=== PATIENT | female | born 1995 | race Caucasian/White ===

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

== ENCOUNTER → 2017-02-14 | Outpatient (REF) | payer OTHER | LOC: M LAB REF 17:26 | PROVIDERS: ATTEND Physician Assistant Medical | DX: R30.0 Dysuria (principal) ==

== ENCOUNTER → 2017-05-26 | Outpatient (REF) | payer OTHER ==
[2017-05-26 22:19] LABS: CHLAMYDIA DNA AMPLIFICATION NEGATIVE (NEGATIVE); GC DNA AMPLIFICATION NEGATIVE (NEGATIVE)
== END ==
LOC: M SFHCLERA 18:11
DX: N89.8 Other specified noninflammatory disorders of vagina (principal)
CPT/HCPCS: 87086

== ENCOUNTER → 2017-07-12 | Outpatient (REF) | payer OTHER ==
[2017-07-12 18:00] LABS: BASO # 0.1 10^3/uL (0.0-0.2); BASO % 0.6 % (0.0-1.0); EOS # 0.3 10^3/uL (0.0-0.50); EOS % 2.9 % (0.0-3.0); HEMATOCRIT 41.4 % (36.0-47.0); HEMOGLOBIN 14.3 g/dl (12.0-15.5); IMMATURE GRANULOCYTE % 0.2 % (0-3.0); LYMPH # 2.2 10^3/uL (1.5-6.5); LYMPH % 23.9 % (24.0-44.0); MEAN CORPUSCULAR HEMOGLOBIN 30.6 pg (27.0-33.0); MEAN CORPUSCULAR HGB CONC 34.5 g/dl (32.0-36.5); MEAN CORPUSCULAR VOLUME 88.7 fl (80.0-96.0); MONO # 0.6 10^3/uL (0.0-0.8); MONO % 6.2 % (0.0-5.0); NEUTROPHILS # 6.1 10^3/uL (1.8-7.7); NEUTROPHILS % 66.2 % (36.0-66.0); PLATELET COUNT, AUTOMATED 282 10^3/uL (150-450); RED BLOOD COUNT 4.67 10^6/uL (4.00-5.40); RED CELL DISTRIBUTION WIDTH 11.9 % (11.5-14.5); WHITE BLOOD COUNT 9.3 10^3/uL (4.0-10.0)
[2017-07-12 18:56] LABS: RHEUMATOID FACTOR QUANT < 10.0 IU/ML (<15.0)
[2017-07-12 18:56] LABS: URIC ACID 4.4 MG/DL (2.6-6.0)
[2017-07-12 19:31] LABS: ERYTHROCYTE SEDIMENTATION RATE 7 mm/hr (0-20)
== END ==
LOC: M LABDRAW1 17:36
DX: M25.562 Pain in left knee (principal)

== ENCOUNTER → 2017-08-23 | Outpatient (REF) | payer OTHER ==
[2017-08-23 12:28] LABS: C REACTIVE PROTEIN QUANTITATIV < 0.30 MG/DL (0.00-0.30)
[2017-08-25 00:07] LABS: Lyme Disease IgG/IgM Antibodie <0.91 ISR (0.00-0.90); Lyme Disease IgM Ab Quantitati <0.80 index (0.00-0.79)
== END ==
LOC: M LABDRAW1 10:14
DX: M25.562 Pain in left knee (principal)
CPT/HCPCS: 86140

== ENCOUNTER → 2017-09-01 | Outpatient (CLI) | payer OTHER | LOC: M RAD 14:05 | DX: M25.562 Pain in left knee (principal) ==

== ENCOUNTER 2017-11-08 11:24 | Emergency (ER) | payer OTHER ==
[2017-11-08] MEDS: METHOCARBAMOL 500 MG TAB PO (13:16)
[2017-11-08] MEDS: NORCO, ANEXSIA 5/325MG TABLET (HYDROcodone/ACETAMINOPHEN) PO (13:17)
== END 2017-11-08 13:23 | disposition home or self-care (01) ==
LOC: M ED 11:24
DX: M54.42 Lumbago with sciatica, left side (principal); M54.16 Radiculopathy, lumbar region; J45.909 Unspecified asthma, uncomplicated; M41.9 Scoliosis, unspecified; Z79.3 Long term (current) use of hormonal contraceptives; Z79.899 Other long term (current) drug therapy; Z88.1 Allergy status to other antibiotic agents
CPT/HCPCS: 99283

== ENCOUNTER → 2018-01-24 | Outpatient (CLI) | payer OTHER ==
[2018-01-24 17:10] LABS: BASO % 0.6 % (0.0-1.0); EOS # 0.2 10^3/uL (0.0-0.50); EOS % 2.6 % (0.0-3.0); HEMOGLOBIN 14.4 g/dl (12.0-15.5); IMMATURE GRANULOCYTE % 0.1 % (0-3.0); LYMPH # 2.2 10^3/uL (1.5-6.5); LYMPH % 31.4 % (24.0-44.0); MEAN CORPUSCULAR HEMOGLOBIN 30.6 pg (27.0-33.0); MEAN CORPUSCULAR HGB CONC 34.3 g/dl (32.0-36.5); MEAN CORPUSCULAR VOLUME 89.4 fl (80.0-96.0); MONO # 0.6 10^3/uL (0.0-0.8); NEUTROPHILS % 57.3 % (36.0-66.0); PLATELET COUNT, AUTOMATED 292 10^3/uL (150-450); RED CELL DISTRIBUTION WIDTH 11.8 % (11.5-14.5); WHITE BLOOD COUNT 6.9 10^3/uL (4.0-10.0)
[2018-01-24 17:46] LABS: CONTROL LINE HCG INT CTR LINE PRESENT; HCG, SERUM QUALITATIVE NEGATIVE (NEGATIVE)
== END ==
LOC: M LAB 16:35
DX: R11.0 Nausea (principal)
CPT/HCPCS: 84703

== ENCOUNTER 2018-03-07 14:32 | Emergency (ER) | payer OTHER ==
[~2018-03-07] VITALS: Ht 157.5 cm; Wt 67.3 kg
[~2018-03-07 14:32] MED LIST changes: +IBUP80TA PO; +MELA3TAB49 PO; +NORCOTAB PO; +ORTH1TAB16 PO; -ORTHTAB14 PO; +ROBA500T PO
[2018-03-07] MEDS ORDERED: VENTAER INH (14:39)
[2018-03-07] MEDS ORDERED: PRED20TA PO (15:10)
[2018-03-07] MEDS ORDERED: ALLE60TA69 PO (15:10)
[2018-03-07] MEDS ORDERED: predniSONE 20 MG TAB PO ONE (15:15)
[2018-03-07 15:22] VITALS: BP 131/97
== END 2018-03-07 15:24 | disposition home or self-care (01) ==
LOC: M ED 14:32
DX: R21 Rash and other nonspecific skin eruption (principal); Z91.018 Allergy to other foods; Z88.1 Allergy status to other antibiotic agents; Z79.3 Long term (current) use of hormonal contraceptives

== ENCOUNTER → 2018-03-21 | Outpatient (CLI) | payer OTHER ==
[~2018-03-21] MED LIST changes: +ALLE60TA69 PO; +PRED20TA PO; +VENTAER INH
--- NOTE | 2018-03-21 21:42 | REP ---
Clinical: Contusion with pain. Technique: AP, inlet, and lateral views of the sacrum and coccyx. Findings: Sacroiliac joints appear symmetric and normal. The sacrum and coccyx appear relatively intact. Very subtle subluxation at the sacrococcygeal interface cannot be excluded. Surrounding soft tissues are unremarkable. Impression: As above. No acute fracture. Electronically Signed by Benedict Estevez MD 03/21/2018 09:34 P
== END ==
LOC: M SMT 11:15
PROVIDERS: ATTEND Physician Assistant
DX: S30.0XXA Contusion of lower back and pelvis, initial encounter (principal); Y93.89 Activity, other specified; Y92.89 Other specified places as the place of occurrence of the external cause; X58.XXXA Exposure to other specified factors, initial encounter; Y99.8 Other external cause status

== ENCOUNTER → 2018-05-07 | Outpatient (CLI) | payer OTHER ==
[2018-05-07 13:36] LABS: BASO % 0.4 % (0.0-1.0); EOS # 0.3 10^3/uL (0.0-0.50); HEMATOCRIT 41.4 % (36.0-47.0); HEMOGLOBIN 14.7 g/dl (12.0-15.5); LYMPH # 1.9 10^3/uL (1.5-6.5); LYMPH % 21.3 % (24.0-44.0); MEAN CORPUSCULAR HEMOGLOBIN 31.1 pg (27.0-33.0); MEAN CORPUSCULAR HGB CONC 35.5 g/dl (32.0-36.5); MEAN CORPUSCULAR VOLUME 87.7 fl (80.0-96.0); MONO # 0.7 10^3/uL (0.0-0.8); MONO % 7.2 % (0.0-5.0); NEUTROPHILS # 6.2 10^3/uL (1.8-7.7); NEUTROPHILS % 67.7 % (36.0-66.0); PLATELET COUNT, AUTOMATED 284 10^3/uL (150-450); RED BLOOD COUNT 4.72 10^6/uL (4.00-5.40); WHITE BLOOD COUNT 9.1 10^3/uL (4.0-10.0)
[2018-05-07 14:52] LABS: HEPATITIS C VIRUS ABY INDEX < 0.0 INDEX (<0.8); HIV 1&2 SCREEN CENTAUR NEGATIVE (NEGATIVE); RUBELLA IgG QUALITATIVE IMMUNE (IMMUNE)
[2018-05-07 15:32] LABS: CHLAMYDIA DNA AMPLIFICATION NEGATIVE (NEGATIVE); GC DNA AMPLIFICATION NEGATIVE (NEGATIVE)
== END ==
LOC: M SMT 11:58
PROVIDERS: ATTEND Advanced Practice Midwife
DX: Z36.89 Encounter for other specified antenatal screening (principal); Z3A.10 10 weeks gestation of pregnancy

== ENCOUNTER → 2018-05-10 | Outpatient (REF) | payer OTHER | LOC: M LAB REF 17:32 | PROVIDERS: ATTEND Physician Assistant | DX: N30.00 Acute cystitis without hematuria (principal) ==

== ENCOUNTER 2018-05-28 09:10 | Emergency (ER) | payer OTHER ==
[~2018-05-28] VITALS: Ht 157.5 cm; Wt 64.0 kg
[~2018-05-28 09:10] MED LIST changes: +HYDR-3715 PO; -NORCOTAB PO
[2018-05-28 09:56] LABS: BASO % 0.3 % (0.0-1.0); EOS # 0.2 10^3/uL (0.0-0.50); EOS % 3.2 % (0.0-3.0); HEMOGLOBIN 14.7 g/dl (12.0-15.5); LYMPH # 1.6 10^3/uL (1.5-6.5); LYMPH % 21.3 % (24.0-44.0); MEAN CORPUSCULAR HEMOGLOBIN 31.1 pg (27.0-33.0); MEAN CORPUSCULAR HGB CONC 35.9 g/dl (32.0-36.5); MEAN CORPUSCULAR VOLUME 86.9 fl (80.0-96.0); MONO # 0.5 10^3/uL (0.0-0.8); MONO % 6.4 % (0.0-5.0); NEUTROPHILS % 68.5 % (36.0-66.0); PLATELET COUNT, AUTOMATED 247 10^3/uL (150-450); RED BLOOD COUNT 4.72 10^6/uL (4.00-5.40); WHITE BLOOD COUNT 7.3 10^3/uL (4.0-10.0)
--- NOTE | 2018-05-28 10:43 | REP ---
OB ULTRASOUND: Real-time sonographic evaluation of the gravid uterus performed. There is a single living intrauterine gestation with an estimated gestational age 13 weeks 4 days based on today's ultrasound measurements with EDC 11/29/2018. CRL 73 mm = 13 weeks 3 days BPD 23 mm = 13 weeks 6 days HC 84 mm = 13 weeks 5 days AC 71 mm = 13 weeks 5 days FL 11 mm = 13 weeks 2 days HC/AC ratio 1.18 within normal range. heart rate 169 beats per minute. There is no subchorionic hemorrhage. Placenta is anterior and to the right with no previa or abruption. No maternal adnexal region abnormalities are seen. 1.8 cm cyst structure in the right ovary probably represents a corpus luteum. Electronically Signed by Curtis Steven MD 05/28/2018 12:46 P
[2018-05-28 11:45] LABS: CHLAMYDIA DNA AMPLIFICATION NEGATIVE (NEGATIVE); GC DNA AMPLIFICATION NEGATIVE (NEGATIVE)
[2018-05-28 12:31] VITALS: BP 116/73
[2018-05-28] MEDS ORDERED: METR-265 PO (12:32)
== END 2018-05-28 12:35 | disposition home or self-care (01) ==
LOC: M ED 09:10
DX: O23.591 Infection of other part of genital tract in pregnancy, first trimester (principal); O99.511 Diseases of the respiratory system complicating pregnancy, first trimester; Z3A.13 13 weeks gestation of pregnancy; Z79.899 Other long term (current) drug therapy; Z88.8 Allergy status to other drugs, medicaments and biological substances; Z88.1 Allergy status to other antibiotic agents

== ENCOUNTER 2018-05-31 07:06 | Emergency (ER) | payer OTHER ==
[~2018-05-31] VITALS: Ht 157.5 cm; Wt 64.1 kg
[~2018-05-31 07:06] MED LIST changes: +METR-265 PO
[2018-05-31] MEDS ORDERED: VENTAER (07:13)
[2018-05-31] MEDS ORDERED: PRENTAB55 (07:13)
[2018-05-31] MEDS ORDERED: ACETAMINOPHEN 325 MG TAB PO ONE (07:45)
[2018-05-31 08:21] LABS: BASO % 0.3 % (0.0-1.0); EOS # 0.2 10^3/uL (0.0-0.50); EOS % 3.3 % (0.0-3.0); HEMOGLOBIN 13.5 g/dl (12.0-15.5); LYMPH # 1.6 10^3/uL (1.5-6.5); MEAN CORPUSCULAR HEMOGLOBIN 31.1 pg (27.0-33.0); MEAN CORPUSCULAR HGB CONC 35.5 g/dl (32.0-36.5); MEAN CORPUSCULAR VOLUME 87.6 fl (80.0-96.0); MONO # 0.5 10^3/uL (0.0-0.8); MONO % 8.5 % (0.0-5.0); NEUTROPHILS % 62.6 % (36.0-66.0); PLATELET COUNT, AUTOMATED 215 10^3/uL (150-450); RED BLOOD COUNT 4.34 10^6/uL (4.00-5.40); WHITE BLOOD COUNT 6.3 10^3/uL (4.0-10.0)
[2018-05-31 09:17] LABS: ALBUMIN 3.4 GM/DL (3.2-5.2); ALT/SGPT 14 U/L (12-78); BILIRUBIN,DIRECT < 0.1 MG/DL (0.0-0.2); BILIRUBIN,TOTAL 0.2 MG/DL (0.2-1.0); BLOOD UREA NITROGEN 7 MG/DL (7-18); CALCIUM LEVEL 8.3 MG/DL (8.5-10.1); CARBON DIOXIDE LEVEL 24 MEQ/L (21-32); CHLORIDE LEVEL 109 MEQ/L (98-107); CREATININE FOR GFR 0.64 MG/DL (0.55-1.30); GLOMERULAR FILTRATION RATE > 60.0 (>60); GLUCOSE, FASTING 79 MG/DL (70-100); HCG, SERUM QUANTITATIVE 102140 MIU/ML; LIPASE 165 U/L (73-393); SODIUM LEVEL 139 MEQ/L (136-145); TOTAL PROTEIN 6.6 GM/DL (6.4-8.2)
[2018-05-31 09:34] LABS: APPEARANCE, URINE HAZY (CLEAR); BACTERIA, URINE AUTO 1+ (NEGATIVE); BILIRUBIN, URINE AUTO NEGATIVE (NEGATIVE); BLOOD, URINE BLOOD NEGATIVE (NEGATIVE); COLOR, URINE YELLOW (YELLOW); GLUCOSE, URINE (UA) AUTO NEGATIVE (NEGATIVE); KETONE, URINE AUTO NEGATIVE (NEGATIVE); LEUKOCYTE ESTERASE, URINE AUTO 1+ (NEGATIVE); MUCUS, URINE SMALL (NEGATIVE); NITRITE, URINE AUTO NEGATIVE (NEGATIVE); PROTEIN, URINE AUTO NEGATIVE (NEGATIVE); RBC, URINE AUTO 2 /HPF (0-3); SPECIFIC GRAVITY URINE AUTO 1.027 (1.002-1.035); SQUAMOUS EPITHELIAL CELL UR AU 6 /HPF (0-6); UROBILINOGEN, URINE AUTO 0.2 mg/dL (0.0-2.0); WBC, URINE AUTO 2 /HPF (0-3)
--- NOTE | 2018-05-31 09:39 | REP ---
PELVIC ULTRASOUND: Real-time sonographic evaluation of the pelvis performed utilizing transabdominal and endovaginal technique with special attention paid to the ovaries to rule out ovarian torsion. No free fluid is seen. There is a living intrauterine gestation as visualized on recent first trimester ultrasound 05/28/2018 with heart rate 157 beats per minute. Right ovary measures 4.0 x 3.3 x 4.6 cm. There is a right corpus luteum measuring 2.8 x 1.5 x 2.5 cm. Left ovary measures 2.7 x 1.9 x 2.8 cm. There is no torsion bilaterally, resistive index right ovary 0.52 and left ovary 0.54 with duplex Doppler evaluation. IMPRESSION: Living intrauterine gestation with heart rate 167 beats per minute. No evidence of ovarian torsion. Right corpus luteum 2.8 cm in diameter. Electronically Signed by Curtis Steven MD 05/31/2018 03:11 P
[2018-05-31 09:45] VITALS: BP 118/66
== END 2018-05-31 10:01 | disposition home or self-care (01) ==
LOC: M ED 07:43
DX: O99.89 Other specified diseases and conditions complicating pregnancy, childbirth and the puerperium (principal); N76.0 Acute vaginitis; N83.291 Other ovarian cyst, right side; Z3A.13 13 weeks gestation of pregnancy; Z88.1 Allergy status to other antibiotic agents; Z88.2 Allergy status to sulfonamides; Z88.8 Allergy status to other drugs, medicaments and biological substances

== ENCOUNTER 2018-06-17 15:40 | Emergency (ER) | payer OTHER ==
[~2018-06-17] VITALS: Ht 157.5 cm; Wt 63.6 kg
[~2018-06-17 15:40] MED LIST changes: +ORTH1TAB15 PO; -ORTH1TAB16 PO; +PRENTAB55; +VENTAER
[2018-06-17 16:10] LABS: BASO % 0.2 % (0.0-1.0); EOS # 0.2 10^3/uL (0.0-0.50); EOS % 2.7 % (0.0-3.0); HEMATOCRIT 39.6 % (36.0-47.0); HEMOGLOBIN 14.1 g/dl (12.0-15.5); LYMPH # 1.6 10^3/uL (1.5-6.5); LYMPH % 18.1 % (24.0-44.0); MEAN CORPUSCULAR HEMOGLOBIN 30.9 pg (27.0-33.0); MEAN CORPUSCULAR HGB CONC 35.6 g/dl (32.0-36.5); MEAN CORPUSCULAR VOLUME 86.7 fl (80.0-96.0); MONO # 0.6 10^3/uL (0.0-0.8); MONO % 7.1 % (0.0-5.0); NEUTROPHILS # 6.3 10^3/uL (1.8-7.7); NEUTROPHILS % 71.6 % (36.0-66.0); PLATELET COUNT, AUTOMATED 232 10^3/uL (150-450); RED BLOOD COUNT 4.57 10^6/uL (4.00-5.40); WHITE BLOOD COUNT 8.8 10^3/uL (4.0-10.0)
[2018-06-17 16:57] LABS: BLOOD UREA NITROGEN 6 MG/DL (7-18); CALCIUM LEVEL 8.5 MG/DL (8.5-10.1); CARBON DIOXIDE LEVEL 24 MEQ/L (21-32); CHLORIDE LEVEL 107 MEQ/L (98-107); CREATININE FOR GFR 0.62 MG/DL (0.55-1.30); GLOMERULAR FILTRATION RATE > 60.0 (>60); GLUCOSE, FASTING 101 MG/DL (70-100); HCG, SERUM QUANTITATIVE 70550 MIU/ML; POTASSIUM SERUM 3.5 MEQ/L (3.5-5.1); SODIUM LEVEL 140 MEQ/L (136-145)
--- NOTE | 2018-06-17 17:41 | REPVR ---
EXAM: US First Trimester, Transabdominal EXAM DATE/TIME: 06/17/2018 4:53 PM CLINICAL HISTORY: 23 years old, female; Signs and symptoms; Lmp or gestational age (in weeks): 16 weeks 1 day; Other: Vaginal bleeding; ; Additional info: Vaginal bleeding; 16 weeks gestation TECHNIQUE: Imaging protocol: Real-time transabdominal obstetrical ultrasound of the maternal pelvis and a first trimester , less than 14 weeks 0 days, with image documentation. COMPARISON: Pelvis, limited US 05/31/2018 8:30 AM FINDINGS: Other findings: 6 GESTATION: Gestation: Single intrauterine gestation Heart rate: heart rate 149 beats per minute. Presentation: Variable Placenta: Posterior placenta. No placenta previa. Amniotic fluid: Amniotic and chorionic fluid are normal for gestational age. BIOMETRY: Estimated gestational age: Gestational age by LMP is 16 weeks 2 days. EZEKIEL 11/30/2018. Estimated weight: Estimated weight 149 g (41 percentile) Biparietal diameter: Since BPD 3.3 cm Head circumference: Head circumference 12.7 cm Abdominal circumference: Abdominal circumference 10.7 cm Femur length: Femur length 2 cm. MATERNAL: Uterus: Unremarkable. Cervix: Cervix measures 2.9 cm. Right adnexa: Unremarkable. Left adnexa: Unremarkable. Intraperitoneal: No intraperitoneal free fluid. IMPRESSION: Unremarkable scan and this 16 week 2 day gestational age fetus. Electronically signed by: Juan Carlos Beck On 06/17/2018 17:41:32 PM
[2018-06-17 17:43] VITALS: BP 133/67
== END 2018-06-17 18:00 | disposition home or self-care (01) ==
LOC: M ED 15:40
DX: O20.8 Other hemorrhage in early pregnancy (principal); O99.512 Diseases of the respiratory system complicating pregnancy, second trimester; O99.89 Other specified diseases and conditions complicating pregnancy, childbirth and the puerperium; M41.9 Scoliosis, unspecified; Z87.891 Personal history of nicotine dependence; Z3A.16 16 weeks gestation of pregnancy; Z79.899 Other long term (current) drug therapy; Z88.8 Allergy status to other drugs, medicaments and biological substances; Z88.2 Allergy status to sulfonamides

== ENCOUNTER 2019-08-30 09:52 | Emergency (ER) | payer OTHER ==
[~2019-08-30] VITALS: Ht 157.5 cm; Wt 62.3 kg
[~2019-08-30 09:52] MED LIST changes: -ORTH1TAB15 PO; +ORTH1TAB8 PO
[2019-08-30] MEDS ORDERED: ALBUTEROL 90 MCG/ACT 8GM HFA INHALER INH STA (10:18)
[2019-08-30] MEDS ORDERED: predniSONE 20 MG TAB PO ONE (10:30)
--- NOTE | 2019-08-30 10:32 | ECGEPIP ---
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
--- NOTE | 2019-08-30 10:37 | REP ---
Clinical: Cough and dyspnea . Comparison: None . Findings: The mediastinum and cardiac silhouette are stable and within normal limits for portable technique. The lung andrews are clear without acute consolidation, effusion, or pneumothorax. Skeletal structures are intact. White rods through the thoracic spine noted. Impression: No acute cardiopulmonary process appreciated. Electronically Signed by Benedict Estevez MD 08/30/2019 10:29 A
[2019-08-30] MEDS ORDERED: PRED20TA PO (12:04)
[2019-08-30 12:15] VITALS: O2SAT 98
[2019-08-30 12:36] VITALS: BP 123/71
== END 2019-08-30 12:48 | disposition home or self-care (01) ==
LOC: EDBD 09:52 → M ED 09:52
DX: J45.901 Unspecified asthma with (acute) exacerbation (principal); Z79.899 Other long term (current) drug therapy; Z88.1 Allergy status to other antibiotic agents; Z88.8 Allergy status to other drugs, medicaments and biological substances

== ENCOUNTER → 2019-11-29 | Outpatient (REF) | payer OTHER | LOC: M LAB REF 15:06 | PROVIDERS: ATTEND Physician Assistant | DX: F52.6 Dyspareunia not due to a substance or known physiological condition (principal) ==

== ENCOUNTER → 2020-03-16 | Outpatient (REF) | payer OTHER | LOC: M LAB REF 18:11 | PROVIDERS: ATTEND Physician Assistant | DX: J06.9 Acute upper respiratory infection, unspecified (principal) ==

== ENCOUNTER 2020-04-23 10:19 | Emergency (ER) | payer OTHER ==
[~2020-04-23] VITALS: Ht 157.5 cm; Wt 69.1 kg
[2020-04-23] MEDS ORDERED: TRI-TAB (10:33)
--- OUTSIDE RECORDS SUMMARY | 2020-04-23 10:46 | CCD | Continuity of Care Document ---
Author Author Reena JONES Organization Unknown Address [address] [place] [address] 6 [address] [place] [address] Phone [phone] Care Team Providers Care Tarp Repairer Name Role Phone Sandy Borrego D.O. AUTM [phone] Melecio Khoury M.D. AUTM [phone] [facility] AUTM [phone] Problems Active Problems Provider Date Asthma REZA Vilchis Onset: 03/15/2016 Social History Type Date Description Comments Sex Unknown ETOH Use Denies alcohol use Tobacco Use Start: Unknown Patient has never smoked Recreational Drug Use Denies Drug Use Smoking Status Reviewed: 04/04/19 Patient has never smoked Sun Exposure Uses sunscreen Seat Belt/Car Seat Always uses seat belt Allergies, Adverse Reactions, Alerts Active Allergies Reaction Severity Comments Date Biaxin 10/28/2015 Bactrim 10/28/2015 Amoxicillin Urticaria 01/04/2017 Medications Active Medications SIG Qnty Indications Ordering Provide r Date Trinessa (28) 0.18/0 .215/0.25 mg-35 mcg Tablets take 1 tablet by mouth daily 84tabs Sandy Braga D.O. 02/07/2019 Ventolin HFA 108(90Base) mcg/Act A erosol 2 puffs every 4 hours shortness of breath or wheezing 36gm J45.909 Sandy Romero D.O. 02/23/2016 History Medications Zyrtec-D Allergy & Congestion 5-120mg Tablets ER 12HR 1 tablet by mouth every 12 hours . take for no more then 10 days max. 20tabs J30.9 José Miguel ChrisO. 10/03 - 11/29/2019 Flonase Allergy Relief 50mcg/Act Suspension two sprays in each nostril once daily 18.200ml J30.9 José Miguel ChrisO. 10/04/2019 - 11/29/2019 Medications Administered in Office Medication SIG Qnty Indications Ordering Provider Date Immunization Administration Single Or Co mbination Injection REZA Vilchis Immunizations CPT Code Status Date Vaccine Lot # [id number] Given 02/23/2016 Influenza Virus Vaccine, Quadrivalent, Split, Preservative Free [id number] Vital Signs Date Vital Result Comment 2020 4:18pm BP Systolic 140 mmHg BP Diastolic 80 mmHg Height 63.1 inches 5'3.10" Weight 151.00 lb BMI (Body Mass Index) 26.7 kg/m2 Heart Rate 81 /min Respiratory Rate 22 /min Body Temperature 98.8 F O2 % BldC Oximetry 99 % [place] Body Weight 115 lb 01/09/2020 1:48pm BP Systolic 116 mmHg BP Diastolic 80 mmHg Height 63.1 inches 5'3.10" Weight 148.25 lb BMI (Body Mass Index) 26.2 kg/m2 Heart Rate 88 /min Respiratory Rate 20 /min Body Temperature 97.9 F O2 % BldC Oximetry 98 % [place] Body Weight 115 lb Results Test Acquired Date Facility Test Result H/L Range Note Respiratory Panel 2020 [facility] (Registration) [address] [place] [address] [phone] Respiratory Panel This respiratory <SEE NOTE> 1 Laboratory test finding 11/29/2019 [facility] (Registration) [address] [place] [address] [id number] [phone] Genital Culture FULL REPORT IN L <SEE NOTE> Normal 2 1 This respiratory PCR panel d etects Influenza A H1, H3 and 2009 H1 viruses, Influenza B virus, Resp iratory Syncytial Virus, Human metapneumovirus, Parainfluenza virus 1, 2, 3 and 4, Adenovirus, Rhinovirus/Enterovirus, Coronavirus HKU1, NL63, OC43, 229E and SARS-CoV-2 (COVID 19), Bordetella pertussis, Bordetella parapertussis, Mycoplasma pneumoniae and Chlamydia pneumoniae. POSITIVE by MULTIPLEXED NUCLEIC ACID PCR SARS-CoV-2 (COVID 19) NEGATIVE - SARS-CoV-2 (COVID19) ORGANISM 1: HUMAN RHINOVIRUS/ENTEROVIRUS Rhinovirus is noted as causing the "common cold", but may also be involved in precipitating asthma attacks and severe complications. Enteroviruses can be associated with different clinical manifestations, including non-specific respiratory illness. These viruses are closely related and therefore not able to be reliably differentiated. ORGANISM 1: HUMAN RHINOVIRUS/ENTEROVIRUS 2 FULL REPORT IN LAB NOTES (eC W and Medent). 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, left arm, subs F41.9 Anxiety disorder, unspecifie d Office Visit 11/29/2019 1:00p [facility] REZA Vilchis F52.6 Dyspareunia not due to a sub stance or known physiol cond Office Visit 10/04/2019 1:40p [facility] REZA Gaona J30.9 Allergic rhinitis, unspecifi ed Assessments Date Code Description Provider 2020 J06.9 Acute upper respiratory infectio n, unspecified REZA Vilchis 01/09/2020 S44.02xD Injury of ulnar nerv e at upper arm level, left arm, subsequent encounter REZA Vilchis 01/09/2020 F41.9 Anxiety disorder, unspecified St even REZA Green 11/29/2019 F52.6 Dyspareunia not due to a substance or known physiological condition REZA Vilchis 10/04/2019 J30.9 Allergic rhinitis, unspecified M REZA Leos Plan of Treatment Future Appointment(s):* 04/07/2020 10:00 am - Sandy Borrego D.O. at [facility] 2020 - REZA Vilchis* J06.9 Acute upper respiratory infection, unspecified* Comments:* Given your symptoms and exposure, we will test you for COVID-19 and other viral pathogens. In the meantime, treat symptoms as we discussed, and I will notify you of test results and further treatment plans. Use tylenol and ibuprofen as needed for fever, and go to the ED for symptoms not relieved with medications and rest. * Follow up:* As already scheduled. Functional Status Description No Information Available Mental Status Description No Information Available Referrals Refer to Reason for Referral Status Appt Date [facility] 24 year old with wors ening anxiety given earlier life circumstances. Please eval and treat for counseling. [facility] [address] [facility] [address] [place] [address] [phone] Melecio Khoury M.D. 24 year old with left elbow pain, with radiation of numbness and tingling to the left hand. Please eval and treat. Closed [facility] [address] [place] [address] [phone]
--- OUTSIDE RECORDS SUMMARY | 2020-04-23 10:46 | CCD ---
Continuity of Care Document (CCD) Created on: 03/17/2020 Reena Gomez External Reference #: [id number] : 1995 Sex: Female Author Author Reena JONES Organization Unknown Address [address] [place] [address] 6 [address] [place] [address] Phone [phone] Care Team Providers Care Audience Development Manager Name Role Phone Sandy Borrego D.O. AUTM [phone] Melecio Khoury M.D. AUTM [phone] [facility] Problems Active Problems Provider Date Asthma REZA [...] CPT Code Status Date Vaccine Lot # [id number] Given 02/23/2016 Influenza Virus Vaccine, Quadrivalent, Split, Preservative Free [id number] Vital Signs Date Vital Result Comment 2020 4:18pm BP Systolic 140 mmHg BP Diastolic 80 mmHg Height 63.1 inches 5'3.10" Weight 151.00 lb BMI (Body Mass Index) 26.7 kg/m2 Heart Rate 81 /min Respiratory Rate 22 /min Body Temperature 98.8 F O2 % BldC Oximetry 99 % [place] Body Weight 115 lb 01/09/2020 1:48pm BP Systolic 116 mmHg BP Diastolic 80 mmHg Height 63.1 inches 5'3.10" Weight 148.25 lb BMI (Body Mass Index) 26.2 kg/m2 Heart Rate 88 /min Respiratory Rate 20 /min Body Temperature 97.9 F O2 % BldC Oximetry 98 % Claude Body Weight 115 lb Results Test Acquired Date Facility Test Result H/L Range Note Respiratory Panel 2020 [facility] Outpatient Testi ng (Registration) [address] [place] [address] [phone] Respiratory Panel This respiratory <SEE NOTE> 1 Laboratory test finding 11/29/2019 [facility] Outpatient T esting (Registration) [address] [place] [address] [id number] [phone] Genital Culture FULL REPORT IN L <SEE [...] Date Location Provider Dx Diagnosis Office Visit 01/09/2020 1:40p [facility] REZA Vilchis 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 at [facility] 2020 - REZA Vilchis* J06.9 Acute upper [...] to Reason for Referral Status Appt Date Melecio Khoury M.D. 24 year old with left elbow pain, with radiation of numbness and tingling to the left hand. Please eval and treat. Sent [facility] [address] [place] [address] [phone] [facility] 24 year old with wors ening anxiety given earlier life circumstances. Please eval and treat for counseling. [facility] [address] [place] [address] [phone]
--- OUTSIDE RECORDS SUMMARY | 2020-04-23 10:46 | CCD | Continuity of Care Document ---
Author Author Reena JONES Organization Unknown Address [address] [place] [address] 6 [address] [place] [address] Phone [phone] Care Team Providers Care Inventory Control Planner Name Role Phone Sandy Borrego D.O. AUTM Melecio Khoury M.D. AUTM [phone] [facility] AUTM Problems Active [...] more then 10 days max. 20tabs J30.9 Terri Chris.O. 10/03 - 11/29/2019 Flonase Allergy Relief 50mcg/Act Suspension two sprays in each nostril once daily 18.200ml J30.9 Terri Chris.O. 10/04/2019 - 11/29/2019 Medications Administered in Office Medication SIG Qnty Indications Ordering Provider Date Immunization Administration Single Or Co mbination Injection REZA Vilchis Immunizations CPT Code Status Date Vaccine Lot # [id number] Given 02/23/2016 Influenza Virus Vaccine, Quadrivalent, Split, Preservative Free [id number] Vital Signs Date Vital Result Comment 2020 4:18pm BP Systolic 140 mmHg BP Diastolic 80 mmHg Height 63.1 inches 5'3.10" Weight 151.00 lb BMI (Body Mass Index) 26.7 kg/m2 Heart Rate 81 /min Respiratory Rate 22 /min Body Temperature 98.8 F O2 % BldC Oximetry 99 % [place] Body Weight 115 lb 01/09/2020 1:48pm BP Systolic 116 mmHg BP Diastolic 80 mmHg Height 63.1 inches 5'3.10" Weight 148.25 lb BMI (Body Mass Index) 26.2 kg/m2 Heart Rate 88 /min Respiratory Rate 20 /min Body Temperature 97.9 F O2 % BldC Oximetry 98 % [place] Body Weight 115 lb Results Test Acquired Date Facility Test Result H/L Range Note Laboratory test finding 11/29/2019 [facility] (Registration) [address] [place] [address] [id number] [phone] Genital Culture FULL REPORT IN L <SEE NOTE> Normal 1 1 FULL REPORT IN LAB NOTES (eC W and Medent). 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, left arm, subs F41.9 Anxiety disorder, unspecifie d Office Visit 11/29/2019 1:00p [facility] REZA Holder F52.6 Dyspareunia not due to a sub stance or known physiol cond Office Visit 10/04/2019 1:40p [facility] REZA Gaona J30.9 Allergic rhinitis, unspecifi ed Assessments Date Code Description Provider 2020 J06.9 Acute upper respiratory infectio n, unspecified REZA Vilchis 01/09/2020 S44.02xD Injury of ulnar nerv e at upper arm level, left arm, subsequent encounter REZA Vilchis 01/09/2020 F41.9 Anxiety disorder, unspecified REZA Neal 11/29/2019 F52.6 Dyspareunia not due to a substance or known physiological condition REZA Vilchis 10/04/2019 J30.9 Allergic rhinitis, unspecified M REZA Leos Plan of Treatment Future Appointment(s):* 04/07/2020 10:00 am - Sandy Borrego D.O. at [facility] 2020 - REZA Vilchis* J06.9 Acute upper respiratory infection, unspecified* New Labs:* Respiratory Panel, Ordered: 03/16/20 * Comments:* Given your symptoms and exposure, we [...] left hand. Please eval and treat. Sent [facility] [address] [place], [place] [id number] [phone] [facility] 24 year old with wors ening anxiety given earlier life circumstances. Please eval and treat for counseling. [facility] [address] [place] [address] [phone]
--- OUTSIDE RECORDS SUMMARY | 2020-04-23 10:46 | CCD ---
Author Author [facility] Organization [facility] Address Unknown Phone Unavailable Care Team Providers Care Customs Brokerage Agent Name Role Phone Cheryle, Melecio PA Unavailable Unavailable Cheryle, Melecio PA Unavailable Unavailable Cheryle, Melecio PA Unavailable Unavailable Cheryle, Melecio PA Unavailable Unavailable Cheryle, Melecio PA Unavailable Unavailable Cheryle, Melecio PA Unavailable Unavailable Cheryle, Emlecio PA Unavailable Unavailable Cheryle, Melecio PA Unavailable Unavailable Cheryle, Melecio PA Unavailable Unavailable Cheryle, Melecio PA Unavailable Unavailable Cheryle, Melecio PA Unavailable Unavailable Cheryle, Melecio PA Unavailable Unavailable Cheryle, Melecio PA Unavailable Unavailable Cheryle, Melecio PA Unavailable Unavailable Cheryle, Melecio PA Unavailable Unavailable Cheryle, Melecio PA Unavailable Unavailable Cheryle, Melecio PA Unavailable Unavailable Cheryle, Melecio PA Unavailable Unavailable Cheryle, Melecio PA Unavailable Unavailable Cheryle, Melecio PA Unavailable Unavailable Cheryle, Melecio PA Unavailable Unavailable Cheryle, Melecio PA Unavailable Unavailable Cheryle, Melecio PA Unavailable Unavailable Cheryle, Melecio PA Unavailable Unavailable Cheryle, Melecio PA Unavailable Unavailable Cheryle, Melecio PA Unavailable Unavailable Cheryle, Melecio PA Unavailable Unavailable Cheryle, Melecio PA Unavailable Unavailable Cheryle, Melecio PA Unavailable Unavailable Cheryle, Melecio PA Unavailable Unavailable Cheryle, Melecio PA Unavailable Unavailable Cheryle, Melecio PA Unavailable Unavailable Cheryle, Melecio PA Unavailable Unavailable Cheryle, Melecio PA Unavailable Unavailable Cheryle, Melecio PA Unavailable Unavailable Cheryle, Melecio PA Unavailable Unavailable Cheryle, Melecio PA Unavailable Unavailable Cheryle, Melecio PA Unavailable Unavailable Cheryle, Melecoi PA Unavailable Unavailable Cheryle, Melecio PA Unavailable Unavailable Cheryle, Melecio PA Unavailable Unavailable Cheryle, Melecio PA Unavailable Unavailable Cheryle, Melecio PA Unavailable Unavailable Cheryle, Melecio PA Unavailable Unavailable Cheryle, Melecio PA Unavailable Unavailable Cheryle, Melecio PA Unavailable Unavailable Cheryle, Melecio PA Unavailable Unavailable Cheryle, Melecio PA Unavailable Unavailable Cheryle, Melecio PA Unavailable Unavailable MARC-KARI, RHONDA DO Unavailable Unavailable MARC-KARI, RHONDA DO Unavailable Unavailable MARC-KARI, RHONDA DO Unavailable Unavailable MARC-KARI, RHONDA DO Unavailable Unavailable MARC-KARI, RHONDA DO Unavailable Unavailable MARC-KARI, RHONDA DO Unavailable Unavailable MARC-KARI, RHONDA DO Unavailable Unavailable MARC-KARI, RHONDA DO Unavailable Unavailable MARC-KARI, RHONDA DO Unavailable Unavailable MARC-KARI, RHONDA DO Unavailable Unavailable MARC-KARI, RHONDA DO Unavailable Unavailable MARC-KARI, RHONDA DO Unavailable Unavailable MARC-KARI, RHONDA DO Unavailable Unavailable MARC-KARI, RHONDA DO Unavailable Unavailable MARC-KARI, RHONDA DO Unavailable Unavailable MARC-KARI, RHONDA DO Unavailable Unavailable MARC-KARI, RHONDA DO Unavailable Unavailable MARC-KARI, RHONDA DO Unavailable Unavailable MARC-KARI, RHONDA DO Unavailable Unavailable MARC-KARI, RHONDA DO Unavailable Unavailable MARC-KARI, RHONDA DO Unavailable Unavailable MARC-KARI, RHONDA DO Unavailable Unavailable MARC-KARI, RHONDA DO Unavailable Unavailable MARC-KARI, RHONDA DO Unavailable Unavailable MARC-KARI, RHONDA DO Unavailable Unavailable MARC-KARI, RHONDA DO Unavailable Unavailable MARC-KARI, RHONDA DO Unavailable Unavailable MARC-KARI, RHONDA DO Unavailable Unavailable MARC-KARI, RHONAD DO Unavailable Unavailable MARC-KARI, RHONDA DO Unavailable Unavailable MARC-KARI, RHONDA DO Unavailable Unavailable MARC-KARI, RHONDA DO Unavailable Unavailable MARC-KARI, RHONDA DO Unavailable Unavailable MARC-KARI, RHONDA DO Unavailable Unavailable MARC-KARI, RHONDA DO Unavailable Unavailable MARC-KARI, RHONDA DO Unavailable Unavailable MARC-KARI, RHONDA DO Unavailable Unavailable MARC-KARI, RHONDA DO Unavailable Unavailable MARC-KARI, RHONDA DO Unavailable Unavailable MARC-KARI, RHONDA DO Unavailable Unavailable MARC-KARI, RHONDA DO Unavailable Unavailable MARC-KARI, RHONDA DO Unavailable Unavailable MARC-KARI, RHONDA DO Unavailable Unavailable MARC-KARI, RHONDA DO Unavailable Unavailable MARC-KARI, RHONDA DO Unavailable Unavailable MARC-KARI, RHONDA DO Unavailable Unavailable MARC-KARI, RHONDA DO Unavailable Unavailable MARC-KARI, RHONDA DO Unavailable Unavailable MARC-KARI, RHONDA DO Unavailable Unavailable MARC-KARI, RHONDA DO Unavailable Unavailable MARC-KARI, RHONDA DO Unavailable Unavailable MARC-KARI, RHONDA DO Unavailable Unavailable MARC-KARI, RHONDA DO Unavailable Unavailable MARC-KARI, RHONDA DO Unavailable Unavailable MARC-KARI, RHONDA DO Unavailable Unavailable MARC-KARI, RHONDA DO Unavailable Unavailable MARC-KARI, RHONDA DO Unavailable Unavailable MARC-KARI, RHONDA DO Unavailable Unavailable MARC-KARI, RHONDA DO Unavailable Unavailable MARC-KARI, RHONDA DO Unavailable Unavailable MARC-KARI, RHONDA DO Unavailable Unavailable MARC-KARI, RHONDA DO Unavailable Unavailable MARC-KARI, RHONDA DO Unavailable Unavailable MARC-KARI, RHONDA DO Unavailable Unavailable MARC-KARI, RHONDA DO Unavailable Unavailable MARC-KARI, RHONDA DO Unavailable Unavailable MARC-KARI, RHONDA DO Unavailable Unavailable MARC-KARI, RHONDA DO Unavailable Unavailable MARC-KARI, RHONDA DO Unavailable Unavailable MARC-KARI, RHONDA DO Unavailable Unavailable MARC-KARI, RHONDA DO Unavailable Unavailable MARC-KARI, RHONDA DO Unavailable Unavailable MARC-KARI, RHONDA DO Unavailable Unavailable MARC-KARI, RHONDA DO Unavailable Unavailable MARC-KARI, RHONDA DO Unavailable Unavailable MARC-KARI, RHONDA DO Unavailable Unavailable MARC-KARI, RHONDA DO Unavailable Unavailable MARC-KARI, RHONDA DO Unavailable Unavailable MARC-KARI, RHONDA DO Unavailable Unavailable MARC-KARI, RHONDA DO Unavailable Unavailable MARC-KARI, RHONDA DO Unavailable Unavailable MARC-KARI, RHONDA DO Unavailable Unavailable O'urmila, A Xavi PA Unavailable Unavailable O'urmila, A Xavi PA Unavailable Unavailable O'urmila, A Xavi PA Unavailable Unavailable O'urmila, A Xavi PA Unavailable Unavailable O'urmila, A Xavi PA Unavailable Unavailable O'urmila, A Xavi PA Unavailable Unavailable O'urmila, A Xavi PA Unavailable Unavailable O'urmila, A Xavi PA Unavailable Unavailable O'urmila, A Xavi PA Unavailable Unavailable O'urmila, A Xavi PA Unavailable Unavailable O'urmila, A Xavi PA Unavailable Unavailable O'urmila, A Xavi PA Unavailable Unavailable O'urmila, A Xavi PA Unavailable Unavailable O'urmila, A Xavi PA Unavailable Unavailable O'urmila, A Xavi PA Unavailable Unavailable O'urmila, A Xavi PA Unavailable Unavailable O'urmila, A Xavi PA Unavailable Unavailable O'urmila, A Xavi PA Unavailable Unavailable O'urmila, A Xavi PA Unavailable Unavailable O'urmila, A Xavi PA Unavailable Unavailable O'urmila, A Xavi PA Unavailable Unavailable O'urmila, A Xavi PA Unavailable Unavailable O'urmila, A Xavi PA Unavailable Unavailable O'urmila, A Xavi PA Unavailable Unavailable O'urmila, A Xavi PA Unavailable Unavailable O'urmila, A Xavi PA Unavailable Unavailable O'urmila, A Xavi PA Unavailable Unavailable O'urmila, A Xavi PA Unavailable Unavailable O'urmila, A Xavi PA Unavailable Unavailable O'urmila, A Xavi PA Unavailable Unavailable O'urmila, A Xavi PA Unavailable Unavailable O'urmila, A Xavi PA Unavailable Unavailable Inocente'urmila, Oli Xavi COBB Unavailable Unavailable Re-disclosure Warning The records that you are about to access may contain information from federally-assisted alcohol or drug abuse programs. If such information is present, then the following federally mandated warning applies: This information has been disclosed to you from records protected by federal confidentiality rules (42 CFR part 2). The federal rules prohibit you from making any further disclosure of this information unless further disclosure is expressly permitted by the written consent of the person to whom it pertains or as otherwise permitted by 42 CFR part 2. A general authorization for the release of medical or other information is NOT sufficient for this purpose. The Federal rules restrict any use of the information to criminally investigate or prosecute any alcohol or drug abuse patient.The records that you are about to access may contain highly sensitive health information, the redisclosure of which is protected by Article 27-F of the [facility] Public Health law. If you continue you may have access to information: Regarding HIV / AIDS; Provided by facilities licensed or operated by the [facility] Office of Mental Health; or Provided by the [facility] Office for People With Developmental Disabilities. If such information is present, then the following [facility] mandated warning applies: This information has been disclosed to you from confidential records which are protected by state law. State law prohibits you from making any further disclosure of this information without the specific written consent of the person to whom it pertains, or as otherwise permitted by law. Any unauthorized further disclosure in violation of state law may result in a fine or correction sentence or both. A general authorization for the release of medical or other information is NOT sufficient authorization for further disc losure. Family History Family Member Name Family Member Gender Family Member Status Date o f Status Description Data Source(s) Unknown Male Problem [facility] ([facility]) Unknown Female Problem [facility] ([facility]) Unknown Female Problem [facility] ([facility]) Unknown Unknown Problem [facility] ([facility]) Unknown Unknown Problem [facility] ([facility]) Unknown Unknown Problem [facility] ([facility]) Unknown Unknown Problem [facility] ([facility]) [facility] Encounters Encounter Providers Location Date Indications Data Source(s ) Outpatient Attender: RHONDA IGNACIO DO [facility] 04/16/2020 09:40:00 AM EST [facility] ([facility]) Outpatient Attender: Melecio COBB [facility] 2020 03:10:00 PM EST [facility] ([facility]) Outpatient Attender: Melecio COBB [facility] 01/09/2020 12:40:00 PM EST [facility] ([facility]) Outpatient Attender: Melecio COBB [facility] 11/29/2019 01:00:00 PM EDT [facility] ([facility]) Outpatient Attender: Xavi COBB [facility] 10/04/2019 01:40:00 PM EDT [facility] ([facility]) Outpatient Attender: RHONDA IGNACIO [facility] 04/04/2019 09:30:00 AM EST [facility] ([facility]) Medications Medication Brand Name Start Date Product Form Dose Route Admi nistrative Instructions Pharmacy Instructions Status Indications Reaction Description Data Source(s) 120 ACTUAT Fluticasone propionate 0.11 MG/ACTUAT Meter ed Dose Inhaler [Flovent] Flovent HFA 04/16/2020 12:00:00 AM EST ORAL active [facility] ([facility]) Flonase Allergy Relief Flonase Allergy Relief 10/04/2019 12:00:00 AM E DT completed [facility] ([facility]) 12 HR cetirizine hydrochloride 5 MG / Ps eudoephedrine Hydrochloride 120 MG Extended Release Oral Tablet [Zyrtec-D] Zyrtec-D [facility] Cong[facility] 10/04/2019 12:00:00 AM EDT ORAL completed [facility] ([facility]) Insurance Providers Payer name Policy type / Coverage type Policy ID Covered democrat ID Covered democrat's relationship to daly Policy Daly Plan Information [facility] [id number] SP [id number] [facility] [id number] S [id number] [facility] Commercial [id number] Self [id number] [place] [employer] [id number] Self [id number] [place] [employer] [id number] Self [id number] [place] [employer] [id number] Self [id number] [facility] Commercial [id number] Self [id number] [place] Commercial [id number] Self 00 [id number] [employer] Commercial [id number] Self [id number] US Family Health Plan Commercial [id number] Self [id number] US Family [employer] Plan Commercial [id number] Self [id number] US Family [employer] Plan Commercial [id number] Self [id number] [employer] [facility] Commercial [id number] Self [id number] [employer] [facility] Commercial [id number] Self [id number] Trot [id number] SP [id number] [employer] [facility] Commercial [id number] Self [id number] [employer] [facility] Commercial [id number] Self [id number] [place] [employer] [id number] Self 00 [id number] [place] Commercial [id number] Self 00 [id number] [place] [employer] [id number] Self 00 [id number] [employer] [facility] Commercial [id number] Self [id number] [place] Commercial [id number] Self 00 [id number] [facility] [employer] Commercial [id number] Self [id number] [employer] [facility] Commercial [id number] Self [id number] [place] Commercial [id number] Self 00 [id number] [employer] [facility] Commercial [id number] Self [id number] [place] Commercial [id number] Self 00 [id number] [employer] [facility] Commercial [id number] Self [id number] [employer] [facility] Commercial [id number] Self [id number] [employer] [facility] [employer] Commercial [id number] Self [id number] [place] Commercial [id number] Self 00 [id number] [employer] FA[employer] [id number] SP [id number] [place] [employer] [id number] Self 00 [id number] [place] Commercial Self [facility] [employer] Commercial Self Results ID Date Data Source [id number] 2020 04:37:00 PM EST [facility] Name Value Range Interpretation Code Description Data Audra rce(s) Supporting Document(s) Respiratory Panel Laboratory test result [facility] ([facility]) This respiratory PCR panel detects Influ randy A H1, H3 and 2009 H1 viruses, [...] be reliably differentiated. ORGANISM 1: HUMAN RHINOVIRUS/ENTEROVIRUS ID Date Data Source [id number] 2020 04:37:00 PM EST [facility] Name Value Range Interpretation Code Description Data Audra rce(s) Supporting Document(s) SARS-CoV-2 (COVID 19) NEGATIVE - SARS-CoV-2 (COVID19) [facility] This lab was ordered by [facility] a nd reported by [facility]. ID Date Data Source [id number] 01/16/2020 05:30:00 PM EST [facility] Name Value Range Interpretation Code Description Data Audra rce(s) Supporting Document(s) SARS coronavirus 2 RNA [facility] This lab was ordered by [employer] [facility] and rep orted by [facility]. ID Date Data Source [id number] 11/29/2019 01:17:00 PM EDT [facility] Name Value Range Interpretation Code Description Data Audra rce(s) Supporting Document(s) Bacteria identified in Genital specimen by [facility] cult ure Laboratory test result Normal (applies to non-numeric results) [facility] ([facility]) FULL REPORT IN LAB NOTES ([facility] and [facility] ). NORMAL JAMES PRESENT Procedure Social History Code Duration Value Status Description Data Source(s ) Smoking 04/16/2020 12:00:00 AM EST Patient has never smoked co mpleted Patient has never smoked [facility] ([facility]) Vital Signs ID Date Data Source UNK Name Value Range Interpretation Code Description Data Source(s) [place] body weight 115 [lb_av] 115 [lb_av] [facility] T ([facility]) Oxygen saturation in Arterial blood by Pulse oximetry 98 % 98 % [facility] ([facility]) Body temperature 98.4 [degF] 98.4 [degF] [facility] ([facility]) Heart rate 68 /min 68 /min [facility] ([facility]) Body mass index (BMI) [Ratio] 26.7 kg/m2 26.7 k g/m2 [facility] ([facility]) Body weight 151.00 [lb_av] 151.00 [lb_av] [facility] ([facility]) Body height 63.1 [in_i] 63.1 [in_i] [facility] ([facility]) 5'3.10" Diastolic blood pressure 78 mm[Hg] 78 mm[Hg] [facility] ([facility]) Systolic blood pressure 118 mm[Hg] 118 mm[facility]Hg] [facility] [place] body weight 115 [lb_av] 115 [lb_av] [facility] ([facility]) Oxygen saturation in Arterial blood by Pulse oximetry 99 % 99 % [facility] ([facility]) Body temperature 98.8 [degF] 98.8 [degF] [facility] Respiratory rate 22 /min 22 /min [facility] Heart rate 81 /min 81 /min [facility] ([facility]) Body mass index (BMI) [Ratio] 26.7 kg/m2 26.7 k g/m2 [facility] Body weight 151.00 [lb_av] 151.00 [lb_av] [facility] ([facility]) Body height 63.1 [in_i] 63.1 [in_i] [facility] ([facility]) 5'3.10" Diastolic blood pressure 80 mm[Hg] 80 mm[Hg] [facility] ([facility]) Systolic blood pressure 140 mm[Hg] 140 mm[Hg] M [facility] ([facility]) [place] body weight 115 [lb_av] 115 [lb_av] [facility] ([facility]) Oxygen saturation in Arterial blood by Pulse oximetry 98 % 98 % [facility] ([facility]) Body temperature 97.9 [degF] 97.9 [degF] [facility] ([facility]) Respiratory rate 20 /min 20 /min [facility] ( [facility]) Heart rate 88 /min 88 /min [facility] ([facility]) Body mass index (BMI) [Ratio] 26.2 kg/m2 26.2 k g/m2 [facility] ([facility]) Body weight 148.25 [lb_av] 148.25 [lb_av] [facility] ([facility]) Body height 63.1 [in_i] 63.1 [in_i] [facility] ([facility]) 5'3.10" Diastolic blood pressure 80 mm[Hg] 80 mm[Hg] [facility] ([facility]) Systolic blood pressure 116 mm[Hg] 116 mm[Hg] [facility] ([facility]) [place] body weight 115 [lb_av] 115 [lb_av] [facility] ([facility]) Oxygen saturation in Arterial blood by Pulse oximetry 99 % 99 % [facility] Body temperature 98.4 [degF] 98.4 [degF] [facility] ([facility]) Respiratory rate 18 /min 18 /min [facility] ( [facility]) Heart rate 94 /min 94 /min [facility] ([facility]) Body mass index (BMI) [Ratio] 26.6 kg/m2 26.6 k g/m2 [facility] ([facility]) Body weight 150.38 [lb_av] 150.38 [lb_av] [facility] ([facility]) Body height 63.1 [in_i] 63.1 [in_i] [facility] ([facility]) 5'3.10" Diastolic blood pressure 78 mm[Hg] 78 mm[Hg] [facility] ([facility]) Systolic blood pressure 112 mm[Hg] 112 mm[Hg] M [facility] ([facility]) Oxygen saturation in Arterial blood by Pulse oximetry 98 % 98 % [facility] ([facility]) Body temperature 97.7 [degF] 97.7 [degF] [facility] ([facility]) Respiratory rate 16 /min 16 /min [facility] ( [facility]) Heart rate 105 /min 105 /min [facility] ([facility]) Body mass index (BMI) [Ratio] 26.9 kg/m2 26.9 k g/m2 [facility] ([facility]) Body weight 152.25 [lb_av] 152.25 [lb_av] [facility] ([facility]) Body height 63.1 [in_i] 63.1 [in_i] [facility] ([facility]) 5'3.10" Diastolic blood pressure 84 mm[Hg] 84 mm[Hg] [facility] ([facility]) Systolic blood pressure 130 mm[Hg] 130 mm[Hg] M [facility] ([facility]) Oxygen saturation in Arterial blood by Pulse oximetry 97 % 97 % [facility] ([facility]) Body temperature 98.0 [degF] 98.0 [degF] [facility] ([facility]) Respiratory rate 18 /min 18 /min [facility] ( [facility]) Heart rate 85 /min 85 /min [facility] ([facility]) Body mass index (BMI) [Ratio] 26.5 kg/m2 26.5 k g/m2 [facility] ([facility]) Body weight 150.00 [lb_av] 150.00 [lb_av] [facility] ([facility]) Body height 63.1 [in_i] 63.1 [in_i] [facility] ([facility]) 5'3.10" Diastolic blood pressure 82 mm[Hg] 82 mm[Hg] [facility] ([facility]) Systolic blood pressure 122 mm[Hg] 122 mm[Hg] Rajeev WILKINS ([facility])
--- OUTSIDE RECORDS SUMMARY | 2020-04-23 10:46 | CCD | Continuity of Care Document ---
Author Author Reena BORREGO D.O. Organization Unknown Address [address] [place] [address] Phone [phone] Care Team Providers Care Hand Stitcher Name Role Phone Sandy Borrego D.O. AUTM Melecio Khoury M.D. AUTM [phone] [facility] Problems Active Problems Provider Date Asthma REZA Vilchis Onset: 03/15/2016 Social History Type Date Description Comments Sex Unknown ETOH Use Denies alcohol use Tobacco Use Start: Unknown Patient has never smoked Recreational Drug Use Denies Drug Use Smoking Status Reviewed: 04/16/20 Patient has never smoked Sun Exposure Uses sunscreen Seat Belt/Car Seat Always uses seat belt Allergies, Adverse Reactions, Alerts Active Allergies Reaction Severity Comments Date Biaxin 10/28/2015 Bactrim 10/28/2015 Amoxicillin Urticaria 01/04/2017 Medications Active Medications SIG Qnty Indications Ordering Provide r Date Flovent HFA 110mcg/Act Aerosol 2 puffs by mouth 2 x a day 12gm J45.40 Sandy Borrego D.O. 04/16 Trinessa (28) 0.18/0 .215/0.25 mg-35 mcg Tablets take 1 tablet by mouth daily 84tabs Sandy Braga D.O. 02/07/2019 Ventolin HFA 108(90Base) mcg/Act A erosol 2 puffs every 4 hours shortness of breath or wheezing 36gm J45.909 Sandy Romero D.O. 02/23/2016 Medications Administered in Office Medication SIG Qnty Indications Ordering Provider Date Immunization Administration Single Or Co mbination Injection REZA Vilchis Immunizations CPT Code Status Date Vaccine Lot # [id number] Given 02/23/2016 Influenza Virus Vaccine, Quadrivalent, Split, Preservative Free [id number] Vital Signs Date Vital Result Comment 04/16/2020 10:40am BP Systolic 118 mmHg BP Diastolic 78 mmHg Height 63.1 inches 5'3.10" Weight 151.00 lb BMI (Body Mass Index) 26.7 kg/m2 Heart Rate 68 /min Body Temperature 98.4 F O2 % BldC Oximetry 98 % Dexter Body Weight 115 lb 2020 4:18pm BP Systolic 140 mmHg BP Diastolic 80 mmHg Height 63.1 inches 5'3.10" Weight 151.00 lb BMI (Body Mass Index) 26.7 kg/m2 Heart Rate 81 /min Respiratory Rate 22 /min Body Temperature 98.8 F O2 % BldC Oximetry 99 % Dexter Body Weight 115 lb Results Test Acquired Date Facility Test Result H/L Range Note Respiratory Panel 2020 [facility] Outpatient Testi ng (Registration) [address] [place] [address] [phone] Respiratory Panel This respiratory <SEE NOTE> 1 Laboratory test finding 11/29/2019 [facility] Outpatient T esting (Registration) [address] [place] [address] [phone] Genital Culture FULL REPORT IN L <SEE [...] Date Location Provider Dx Diagnosis Office Visit 04/16/2020 10:40a [facility] Sandy Borrego D.O. 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 04/16/2020 J45.40 Moderate persistent asthma, unco mplicated Sandy Romero D.O. 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 04/16/2020 J30.9 Allergic rhinitis, unspecified Josue Borrego D.O. 2020 J06.9 Acute upper respiratory infectio n, unspecified REZA Vilchis 01/09/2020 S44.02xD Injury of ulnar nerv e at upper arm level, left arm, subsequent encounter REZA Vilchis 01/09/2020 F41.9 Anxiety disorder, unspecified REZA Neal 11/29/2019 F52.6 Dyspareunia not due to a substance or known physiological condition REZA Vilchis Plan of Treatment Future Appointment(s):* 04/19/2021 10:00 am - Sandy Borrego D.O. at [facility] * 10/14/2020 9:00 am - REZA Vilchis at [facility] Functional Status Description No Information Available Mental Status Description No Information Available Referrals Refer to Reason for Referral Status Appt Date [facility] 24 year old with wors ening anxiety given earlier life circumstances. Please eval and treat for counseling. [facility] [id number] [facility] [address] [place] [address] [phone] Melecio Khoury M.D. 24 year old with left elbow pain, with radiation of numbness and tingling to the left hand. Please eval and treat. Closed [facility] [address] [place] [address] [phone]
[2020-04-23] MEDS ORDERED: predniSONE 20 MG TAB PO ONE (10:55)
[2020-04-23] MEDS ORDERED: PRED20TA PO (10:56)
[2020-04-23 11:06] VITALS: BP 131/85
== END 2020-04-23 11:35 | disposition home or self-care (01) ==
LOC: M ED 10:19 → EDBD 10:19 → M ED 11:35
DX: J45.901 Unspecified asthma with (acute) exacerbation (principal); Z79.3 Long term (current) use of hormonal contraceptives; Z79.899 Other long term (current) drug therapy; Z88.1 Allergy status to other antibiotic agents; Z88.8 Allergy status to other drugs, medicaments and biological substances

== ENCOUNTER 2020-10-16 08:41 | Emergency (ER) | payer OTHER ==
[~2020-10-16] VITALS: Ht 157.5 cm; Wt 63.2 kg
[~2020-10-16 08:41] MED LIST changes: +TRI-TAB
[2020-10-16] MEDS ORDERED: ACET500P3 PO (08:58)
--- NOTE | 2020-10-16 10:17 | REP ---
INDICATION: lifting case of water, pain along middle finger COMPARISON: None. TECHNIQUE: Four views right hand. FINDINGS: There is no evidence of acute fracture, dislocation, or intrinsic bone disease.The joint spaces are unremarkable. IMPRESSION: No fracture or dislocation. <Electronically signed by Curtis Steven > 10/16/20 1014
[2020-10-16 10:40] VITALS: BP 130/90
== END 2020-10-16 10:40 | disposition home or self-care (01) ==
LOC: M ED 08:41
DX: M79.641 Pain in right hand (principal); Z88.1 Allergy status to other antibiotic agents; Z88.2 Allergy status to sulfonamides; Z88.8 Allergy status to other drugs, medicaments and biological substances

== ENCOUNTER → 2020-11-27 | Outpatient (REF) | payer OTHER ==
[~2020-11-27] MED LIST changes: +ACET500P3 PO
== END ==
LOC: M LAB REF 20:17
PROVIDERS: ATTEND Family Medicine
DX: J06.9 Acute upper respiratory infection, unspecified (principal)

== ENCOUNTER → 2021-02-23 | Outpatient (REF) | payer OTHER | LOC: M LAB REF 18:38 | PROVIDERS: ATTEND Nurse Practitioner Adult Health | DX: J06.9 Acute upper respiratory infection, unspecified (principal) ==

== ENCOUNTER 2021-05-06 09:30 | Emergency (ER) | payer OTHER ==
[~2021-05-06] VITALS: Ht 157.5 cm; Wt 64.1 kg
[2021-05-06] MEDS ORDERED: MONT10TA97 (09:40)
[2021-05-06] MEDS ORDERED: ADV250INH (09:40)
[2021-05-06] MEDS ORDERED: KETOROLAC 60MG 2ML VIAL IM ONE (10:00)
[2021-05-06 11:10] VITALS: BP 117/70
== END 2021-05-06 11:11 | disposition home or self-care (01) ==
LOC: M ED 09:30
DX: S23.3XXA Sprain of ligaments of thoracic spine, initial encounter (principal); S63.502A Unspecified sprain of left wrist, initial encounter; W01.0XXA Fall on same level from slipping, tripping and stumbling without subsequent striking against object, initial encounter; Y92.009 Unspecified place in unspecified non-institutional (private) residence as the place of occurrence of the external cause; Y93.9 Activity, unspecified; Y99.0 Civilian activity done for income or pay; J45.909 Unspecified asthma, uncomplicated; Z88.1 Allergy status to other antibiotic agents; Z88.2 Allergy status to sulfonamides; Z79.899 Other long term (current) drug therapy
CPT/HCPCS: 72072; 73110; 96372; 99283; J1885

== ENCOUNTER → 2021-05-12 | Outpatient (CLI) | payer OTHER ==
[~2021-05-12] MED LIST changes: +ADV250INH; +MONT10TA97
[2021-05-12 09:23] LABS: BASO % 0.5 % (0.0-1.0); EOS # 0.2 10^3/uL (0.0-0.5); EOS % 3.6 % (0.0-3.0); HEMATOCRIT 42.1 % (36.0-47.0); HEMOGLOBIN 14.5 g/dl (12.0-15.5); LYMPH % 30.6 % (24.0-44.0); MEAN CORPUSCULAR HEMOGLOBIN 30.2 pg (27.0-33.0); MEAN CORPUSCULAR HGB CONC 34.4 g/dl (32.0-36.5); MEAN CORPUSCULAR VOLUME 87.7 fl (80.0-96.0); MONO # 0.5 10^3/uL (0.0-0.8); MONO % 6.9 % (2.0-8.0); NEUTROPHILS # 3.9 10^3/uL (1.5-8.5); NEUTROPHILS % 58.1 % (36.0-66.0); PLATELET COUNT, AUTOMATED 282 10^3/uL (150-450); WHITE BLOOD COUNT 6.7 10^3/uL (4.0-10.0)
[2021-05-12 10:38] LABS: ALBUMIN 4.1 GM/DL (3.2-5.2); ALT/SGPT 18 U/L (12-78); BILIRUBIN,TOTAL 0.6 MG/DL (0.2-1.0); BLOOD UREA NITROGEN 16 MG/DL (7-18); CARBON DIOXIDE LEVEL 30 MEQ/L (21-32); CHLORIDE LEVEL 107 MEQ/L (98-107); CHOLESTEROL LEVEL 211 MG/DL (<200); CHOLESTEROL RISK RATIO 3.459 (<5); CREATININE FOR GFR 0.73 MG/DL (0.55-1.30); FREE T4 1.18 NG/DL (0.76-1.46); GLOMERULAR FILTRATION RATE > 60.0 (>60); GLUCOSE, FASTING 76 MG/DL (70-100); HDL CHOLESTEROL 61 MG/DL (>40); LDL CHOLESTEROL 122 MG/DL (<100); NON-HDL-C 150 MG/DL; POTASSIUM SERUM 4.6 MEQ/L (3.5-5.1); SODIUM LEVEL 142 MEQ/L (136-145); THYROID STIMULATING HORMONE 0.576 uIU/ML (0.358-3.740); TOTAL PROTEIN 7.3 GM/DL (6.4-8.2); TRIGLYCERIDES LEVEL 141 MG/DL (<150)
== END ==
LOC: M LAB 08:15
PROVIDERS: ATTEND Family Medicine
DX: Z13.220 Encounter for screening for lipoid disorders (principal); Z13.0 Encounter for screening for diseases of the blood and blood-forming organs and certain disorders involving the immune mechanism

== ENCOUNTER 2021-12-27 02:25 | Emergency (ER) | payer OTHER ==
[~2021-12-27] VITALS: Ht 157.5 cm; Wt 61.4 kg
[2021-12-27 02:25] VITALS: BP 140/74
== END 2021-12-27 04:55 | disposition left against medical advice (07) ==
LOC: M ED 02:25
DX: Z53.21 Procedure and treatment not carried out due to patient leaving prior to being seen by health care provider (principal)

== ENCOUNTER → 2021-12-31 | Outpatient (REF) | payer OTHER | LOC: M PLALAB 12:05 | PROVIDERS: ATTEND Advanced Practice Midwife | DX: Z34.01 Encounter for supervision of normal first pregnancy, first trimester (principal) ==

== ENCOUNTER → 2021-12-31 | Outpatient (CLI) | payer OTHER ==
[2021-12-31 15:47] LABS: BASO % 0.2 % (0.0-1.0); EOS # 0.2 10^3/uL (0.0-0.5); EOS % 2.7 % (0.0-3.0); HEMATOCRIT 42.1 % (36.0-47.0); HEMOGLOBIN 14.3 g/dl (12.0-15.5); LYMPH # 1.9 10^3/uL (1.5-5.0); LYMPH % 21.5 % (24.0-44.0); MEAN CORPUSCULAR HEMOGLOBIN 30.4 pg (27.0-33.0); MEAN CORPUSCULAR VOLUME 89.6 fl (80.0-96.0); MONO # 0.5 10^3/uL (0.0-0.8); NEUTROPHILS % 69.3 % (36.0-66.0); PLATELET COUNT, AUTOMATED 240 10^3/uL (150-450); WHITE BLOOD COUNT 8.7 10^3/uL (4.0-10.0)
[2021-12-31 17:11] LABS: GC DNA AMPLIFICATION NEGATIVE (NEGATIVE)
[2021-12-31 17:18] LABS: HEPATITIS C VIRUS ABY INDEX < 0.0 INDEX (<0.8); HIV 1&2 SCREEN CENTAUR NEGATIVE (NEGATIVE)
== END ==
LOC: M PLALAB 12:22
PROVIDERS: ATTEND Advanced Practice Midwife
DX: Z34.01 Encounter for supervision of normal first pregnancy, first trimester (principal)

== ENCOUNTER → 2022-03-02 | Outpatient (CLI) | payer OTHER | LOC: M WHC 13:28 | PROVIDERS: ATTEND Advanced Practice Midwife | DX: O32.1XX0 Maternal care for breech presentation, not applicable or unspecified (principal); Z3A.19 19 weeks gestation of pregnancy; O44.02 Complete placenta previa NOS or without hemorrhage, second trimester ==

== ENCOUNTER → 2022-03-18 | Outpatient (CLI) | payer OTHER | LOC: M WHC 12:31 | PROVIDERS: ATTEND Advanced Practice Midwife | DX: O44.42 Low lying placenta NOS or without hemorrhage, second trimester (principal); O32.1XX0 Maternal care for breech presentation, not applicable or unspecified; Z3A.22 22 weeks gestation of pregnancy ==

== ENCOUNTER → 2022-04-29 | Outpatient (CLI) | payer OTHER ==
[~2022-04-29] MED LIST changes: +MONT-5 PO; -SING10TA32 PO
[2022-04-29 10:44] LABS: HEMATOCRIT 36.4 % (36.0-47.0); HEMOGLOBIN 12.4 g/dl (12.0-15.5); MEAN CORPUSCULAR HEMOGLOBIN 30.7 pg (27.0-33.0); MEAN CORPUSCULAR HGB CONC 34.1 g/dl (32.0-36.5); MEAN CORPUSCULAR VOLUME 90.1 fl (80.0-96.0); PLATELET COUNT, AUTOMATED 191 10^3/uL (150-450); RED BLOOD COUNT 4.04 10^6/uL (4.00-5.40); WHITE BLOOD COUNT 9.6 10^3/uL (4.0-10.0)
[2022-04-29 13:33] LABS: GC DNA AMPLIFICATION NEGATIVE (NEGATIVE)
== END ==
LOC: M PLALAB 07:15
PROVIDERS: ATTEND Obstetrics & Gynecology
DX: Z34.92 Encounter for supervision of normal pregnancy, unspecified, second trimester (principal)

== ENCOUNTER → 2022-05-02 | Outpatient (REF) | payer OTHER ==
[2022-05-02 11:04] LABS: APPEARANCE, URINE CLEAR (CLEAR); BACTERIA, URINE AUTO 1+ (NEGATIVE); BILIRUBIN, URINE AUTO NEGATIVE (NEGATIVE); BLOOD, URINE BLOOD NEGATIVE (NEGATIVE); COLOR, URINE YELLOW (YELLOW); GLUCOSE, URINE (UA) AUTO NEGATIVE (NEGATIVE); KETONE, URINE AUTO NEGATIVE (NEGATIVE); LEUKOCYTE ESTERASE, URINE AUTO 1+ (NEGATIVE); MUCUS, URINE SMALL (NEGATIVE); NITRITE, URINE AUTO NEGATIVE (NEGATIVE); PROTEIN, URINE AUTO NEGATIVE (NEGATIVE); RBC, URINE AUTO 0 /HPF (0-3); SPECIFIC GRAVITY URINE AUTO 1.017 (1.002-1.035); SQUAMOUS EPITHELIAL CELL UR AU 5 /HPF (0-6); UROBILINOGEN, URINE AUTO 0.2 mg/dL (0.0-2.0); WBC, URINE AUTO 5 /HPF (0-3)
== END ==
LOC: M SFHCWAGY 10:06
PROVIDERS: ATTEND Obstetrics & Gynecology
DX: R10.9 Unspecified abdominal pain (principal)
CPT/HCPCS: 81001; 87086; G0463

== ENCOUNTER → 2022-05-04 | Outpatient (CLI) | payer OTHER | LOC: M WHC 14:42 | PROVIDERS: ATTEND Advanced Practice Midwife | DX: O26.899 Other specified pregnancy related conditions, unspecified trimester (principal) ==

== ENCOUNTER → 2022-06-17 | Outpatient (CLI) | payer OTHER | LOC: M WHC 15:09 | PROVIDERS: ATTEND Specialist | DX: Z36.2 Encounter for other antenatal screening follow-up (principal); Z3A.35 35 weeks gestation of pregnancy ==

== ENCOUNTER → 2022-06-28 | Outpatient (REF) | payer OTHER ==
[~2022-06-28] MED LIST changes: +ALBU6.7H6 INH; +COLA100C5 PO; +PERCOCET PO; +PREN200C PO; +PRENTAB7 PO
== END ==
LOC: M SFHCPLAZ 17:56
PROVIDERS: ATTEND Specialist
DX: Z36.89 Encounter for other specified antenatal screening (principal); Z3A.00 Weeks of gestation of pregnancy not specified
CPT/HCPCS: 87081; G0463

== ENCOUNTER 2022-07-10 18:32 | Inpatient (IN) | payer OTHER ==
[~2022-07-10] VITALS: Ht 157.5 cm; Wt 71.2 kg
[2022-07-10] VITALS (12 sets, daily range): BP systolic 124–144; BP diastolic 75–92
[~2022-07-10 18:32] MED LIST changes: -COLA100C5 PO; -PERCOCET PO
[2022-07-10 19:34] LABS: HEMATOCRIT 36.4 % (36.0-47.0); HEMOGLOBIN 11.8 g/dl (12.0-15.5); MEAN CORPUSCULAR HEMOGLOBIN 28.5 pg (27.0-33.0); MEAN CORPUSCULAR HGB CONC 32.4 g/dl (32.0-36.5); MEAN CORPUSCULAR VOLUME 87.9 fl (80.0-96.0); PLATELET COUNT, AUTOMATED 196 10^3/uL (150-450); RED BLOOD COUNT 4.14 10^6/uL (4.00-5.40); WHITE BLOOD COUNT 9.3 10^3/uL (4.0-10.0)
[2022-07-10] MEDS ORDERED: OXYTOCIN DRIP 30 UNITS in IV 1 EA IV PRN (21:10)
[2022-07-10] MEDS ORDERED: LIDOCAINE 1% MDV 20ML VIAL INFIL PRN (21:10)
[2022-07-10] MEDS ORDERED: AZITHROMYCIN INJ 500 MG, VIAL MATE ADAPTER 1 EACH in NS 250 ML IV ONE (21:10)
[2022-07-10] MEDS ORDERED: LR 1,000 ML IV SCH (21:10)
[2022-07-10] MEDS ORDERED: BICITRA 30ML SOLN UDC PO ONE (21:10)
[2022-07-10] MEDS ORDERED: TRANEXAMIC ACID INJection 1,000 MG in NS 100 ML IV PRN (21:10)
[2022-07-10] MEDS ORDERED: LACTATED RINGER'S 1000 ML IV STA (21:10)
[2022-07-10] MEDS ORDERED: CARBOPROST TROMETHAMINE 250 MCG/ML AMP IM PRN (21:10)
[2022-07-10] MEDS ORDERED: METHYLERGONOVINE MALEATE 0.2MG/ML 1ML VIAL IM PRN (21:10)
[2022-07-10] MEDS ORDERED: ceFAZolin SOD 2 GM in IV 1 EA IV ONE (21:10)
[2022-07-10] MEDS ORDERED: MORPHINE PRES-FREE INJ 10 MG/10 ML VIAL As Ordered ONE (22:48)
[2022-07-10] MEDS ORDERED: OXYTOCIN 30UNITS IN 0.9% NaCl 500ML IV BAG As Ordered ONE (22:51)
[2022-07-10] MEDS ORDERED: ONDANSETRON 4MG 2ML VIAL As Ordered ONE (23:13)
[2022-07-10] MEDS ORDERED: fentaNYL 100 MCG/2 ML INJECTION As Ordered ONE (23:44)
[2022-07-10] MEDS ORDERED: MIDAZOLAM INJ 2MG/2ML VIAL As Ordered ONE (23:44)
[2022-07-11] VITALS (10 sets, daily range): BP systolic 115–141; BP diastolic 64–94
[2022-07-11] MEDS ORDERED: propofoL 200 MG/20 ML VIAL As Ordered ONE ×2 (00:02→00:20)
[2022-07-11] MEDS ORDERED: ACETAMINOPHEN 1000MG 100ML IV BAG As Ordered ONE (00:02)
[2022-07-11] MEDS ORDERED: KETOROLAC 60MG 2ML VIAL As Ordered ONE (00:29)
[2022-07-11] MEDS ORDERED: PHENYLephrine 500MCG 5ML (100MCG/ML) SYRINGE As Ordered ONE (00:30)
[2022-07-11] MEDS ORDERED: OXYTOCIN DRIP 30 UNITS in IV 1 EA IV SCH (00:50)
[2022-07-11] MEDS ORDERED: PERCOCET 5MG/325MG TAB PO PRN ×2 (00:50)
[2022-07-11] MEDS ORDERED: ONDANSETRON 4MG 2ML VIAL IV PRN ×2 (00:50→00:55)
[2022-07-11] MEDS ORDERED: RHOGAM 300MCG (1500IU) INJ IM SCH (00:50)
[2022-07-11] MEDS ORDERED: MORPHINE 4 MG/ML 1ML VIAL IV PRN (00:50)
[2022-07-11] MEDS ORDERED: ANUSOL HC CREAM 30GM TOP PRN (00:50)
[2022-07-11] MEDS ORDERED: ACETAMINOPHEN 500 MG TAB PO PRN (00:50)
[2022-07-11] MEDS ORDERED: SIMETHICONE 80MG CHEW TAB PO PRN (00:50)
[2022-07-11] MEDS ORDERED: MORPHINE 2 MG/ML 1ML VIAL IV PRN (00:55)
[2022-07-11] MEDS ORDERED: **NOTE PATIENT COMMENT** MISC XX SCH (00:55)
[2022-07-11] MEDS ORDERED: fentaNYL 100 MCG/2 ML INJECTION IV PRN (00:55)
[2022-07-11] MEDS ORDERED: oxyCODONE 5MG TAB PO PRN (00:55)
[2022-07-11] MEDS ORDERED: MEPERIDINE 25 MG/ML 1ML VIAL IV PRN (00:55)
[2022-07-11] MEDS: SLF 3 ML SYR IV SCH ×3 (00:55→16:55)
[2022-07-11] MEDS ORDERED: diphenhydrAMINE 50MG/ML VIAL IV PRN (00:55)
[2022-07-11] MEDS ORDERED: NALOXONE INJ 0.4MG/1ML VIAL IV PRN ×2 (00:55)
[2022-07-11] MEDS ORDERED: METOCLOPRAMIDE INJ 10MG/2ML VIAL IV PRN (00:55)
[2022-07-11] MEDS ORDERED: OXYTOCIN 30UNITS IN 0.9% NaCl 500ML IV BAG As Ordered ONE (01:06)
[2022-07-11] MEDS ORDERED: MEPERIDINE 25 MG/ML 1ML VIAL As Ordered ONE (01:29)
[2022-07-11] MEDS ORDERED: IBUP80TA PO (01:42)
[2022-07-11] MEDS ORDERED: PERCOCET PO (01:42)
[2022-07-11] MEDS ORDERED: COLA100C5 PO (01:42)
[2022-07-11] MEDS: LR 1,000 ML IV SCH ×2 (02:13→10:12)
[2022-07-11] MEDS: KETOROLAC 30 MG/ML 1ML VIAL IV SCH ×3 (06:43→19:51)
[2022-07-11] MEDS: PRENATAL VITAMINS CHEWABLE TABLET PO SCH (09:34)
[2022-07-11] MEDS: DOCUSATE SODIUM 100MG CAPSULE PO SCH ×2 (09:34→19:51)
[2022-07-12 02:00] VITALS: BP 129/59
[2022-07-12] MEDS: IBUPROFEN 800 MG TAB PO SCH ×2 (03:24→12:51)
[2022-07-12 06:00] VITALS: BP 119/73
[2022-07-12 07:23] LABS: HEMATOCRIT 25.5 % (36.0-47.0); MEAN CORPUSCULAR HEMOGLOBIN 29.3 pg (27.0-33.0); MEAN CORPUSCULAR HGB CONC 33.7 g/dl (32.0-36.5); MEAN CORPUSCULAR VOLUME 86.7 fl (80.0-96.0); PLATELET COUNT, AUTOMATED 158 10^3/uL (150-450); RED BLOOD COUNT 2.94 10^6/uL (4.00-5.40); WHITE BLOOD COUNT 8.6 10^3/uL (4.0-10.0)
[2022-07-12 07:25] LABS: HEMOGLOBIN 8.6 g/dl (12.0-15.5)
[2022-07-12] MEDS: DOCUSATE SODIUM 100MG CAPSULE PO SCH (09:33)
[2022-07-12] MEDS: PRENATAL VITAMINS CHEWABLE TABLET PO SCH (09:33)
[2022-07-12 10:00] VITALS: BP 121/76
[2022-07-13] MEDS ORDERED: MEASLES,MUMPS,RUBELLA VACCINE INJ (MMR-II) SC.IMMUN ONE (09:00)
== END 2022-07-12 15:30 | disposition home or self-care (01) | DRG 773 ==
LOC: M LDO 18:32 → M LDI 18:55 → M OBS 07-11 02:21
PROVIDERS: ADMIT Obstetrics & Gynecology; ATTEND Obstetrics & Gynecology
PROC: 10D00Z1 Extraction of Products of Conception, Low, Open Approach (ICD-10-PCS; principal; 2022-07-10 23:00)
DX: O34.211 Maternal care for low transverse scar from previous cesarean delivery (principal); Z37.0 Single live birth; Z3A.38 38 weeks gestation of pregnancy; Z88.0 Allergy status to penicillin; Z88.5 Allergy status to narcotic agent; Z88.8 Allergy status to other drugs, medicaments and biological substances

== ENCOUNTER → 2022-12-23 | Outpatient (CLI) | payer MEDICAID ==
[~2022-12-23] MED LIST changes: +COLA100C5 PO; +PERCOCET PO
== END ==
LOC: M WHC 08:40
PROVIDERS: ATTEND Obstetrics & Gynecology
DX: R10.33 Periumbilical pain (principal); R93.7 Abnormal findings on diagnostic imaging of other parts of musculoskeletal system

== ENCOUNTER → 2023-02-21 | Outpatient (REF) | LOC: M EMP 08:56 | PROVIDERS: ATTEND Family Medicine | DX: Z11.52 Encounter for screening for COVID-19 (principal) ==

== ENCOUNTER → 2023-03-01 | Outpatient (REF) | payer MEDICAID ==
[2023-03-01 13:08] LABS: RSV AMPLIFICATION NEGATIVE (NEGATIVE)
== END ==
LOC: M LAB REF 11:10
PROVIDERS: ATTEND Physician Assistant
DX: B34.9 Viral infection, unspecified (principal); J02.9 Acute pharyngitis, unspecified

== ENCOUNTER → 2023-06-13 | Outpatient (CLI) | payer OTHER ==
[2023-06-13 16:22] LABS: APPEARANCE, URINE CLEAR (CLEAR); BACTERIA, URINE AUTO NEGATIVE (NEGATIVE); BILIRUBIN, URINE AUTO NEGATIVE (NEGATIVE); BLOOD, URINE BLOOD NEGATIVE (NEGATIVE); COLOR, URINE YELLOW (YELLOW); GLUCOSE, URINE (UA) AUTO NEGATIVE (NEGATIVE); KETONE, URINE AUTO NEGATIVE (NEGATIVE); LEUKOCYTE ESTERASE, URINE AUTO NEGATIVE (NEGATIVE); NITRITE, URINE AUTO NEGATIVE (NEGATIVE); PROTEIN, URINE AUTO NEGATIVE (NEGATIVE); RBC, URINE AUTO 0 /HPF (0-3); SPECIFIC GRAVITY URINE AUTO 1.015 (1.002-1.035); SQUAMOUS EPITHELIAL CELL UR AU 0 /HPF (0-6); WBC, URINE AUTO 0 /HPF (0-3)
[2023-06-13 17:14] LABS: BASO % 0.5 % (0.0-1.0); EOS # 0.3 10^3/uL (0.0-0.5); EOS % 4.4 % (0.0-3.0); HEMATOCRIT 42.2 % (36.0-47.0); HEMOGLOBIN 14.4 g/dl (12.0-15.5); LYMPH # 1.8 10^3/uL (1.5-5.0); LYMPH % 32.2 % (24.0-44.0); MEAN CORPUSCULAR HEMOGLOBIN 30.5 pg (27.0-33.0); MEAN CORPUSCULAR HGB CONC 34.1 g/dl (32.0-36.5); MEAN CORPUSCULAR VOLUME 89.4 fl (80.0-96.0); MONO # 0.6 10^3/uL (0.0-0.8); MONO % 10.6 % (2.0-8.0); NEUTROPHILS # 2.9 10^3/uL (1.5-8.5); NEUTROPHILS % 51.9 % (36.0-66.0); PLATELET COUNT, AUTOMATED 241 10^3/uL (150-450); RED BLOOD COUNT 4.72 10^6/uL (4.00-5.40); WHITE BLOOD COUNT 5.7 10^3/uL (4.0-10.0)
[2023-06-13 17:44] LABS: HEMOGLOBIN A1c 4.8 % (4.0-6.0)
[2023-06-13 17:48] LABS: ALKALINE PHOSPHATASE 131 U/L (46-116); ALT/SGPT 117 U/L (7.0-40); AST/SGOT 71 U/L (<34); BILIRUBIN,TOTAL 0.3 MG/DL (0.3-1.2); BLOOD UREA NITROGEN 10 MG/DL (9-23); CALCIUM LEVEL 8.8 MG/DL (8.5-10.1); CARBON DIOXIDE LEVEL 26 MMOL/L (20-31); CHLORIDE LEVEL 106 MMOL/L (98-107); CREATININE FOR GFR 0.72 MG/DL (0.55-1.30); GLOMERULAR FILTRATION RATE > 60.0 (>60); GLUCOSE, FASTING 69 MG/DL (60-100); POTASSIUM SERUM 4.4 MMOL/L (3.5-5.1); SODIUM LEVEL 136 MMOL/L (136-145); TOTAL PROTEIN 7.1 G/DL (5.7-8.2)
[2023-06-13 17:49] LABS: FREE T4 1.06 NG/DL (0.89-1.76); LUTEINIZING HORMONE 5.2 mIU/ML
[2023-06-13 17:50] LABS: FOLLICLE STIMULATING HORMONE 7.1 mIU/ML; THYROID STIMULATING HORMONE 0.614 uIU/ML (0.55-4.78)
== END ==
LOC: M PLALAB 14:14
PROVIDERS: ATTEND Student in an Organized Health Care Education/Training Program
DX: N92.1 Excessive and frequent menstruation with irregular cycle (principal)

== ENCOUNTER → 2023-06-15 | Outpatient (CLI) | payer OTHER ==
[2023-06-15 13:30] LABS: LIPASE 41 U/L (12-53)
[2023-06-15 13:32] LABS: ALKALINE PHOSPHATASE 139 U/L (46-116); ALT/SGPT 87 U/L (7.0-40); AMYLASE 66 U/L (30-118); AST/SGOT 48 U/L (<34); BILIRUBIN,DIRECT 0.2 MG/DL (<0.4); BILIRUBIN,TOTAL 0.4 MG/DL (0.3-1.2); TOTAL PROTEIN 7.1 G/DL (5.7-8.2)
[2023-06-15 14:12] LABS: HEPATITIS B CORE ANTIBODY IGM NEGATIVE (NEGATIVE); HEPATITIS C VIRUS ABY INDEX < 0.02 INDEX (<0.8)
== END ==
LOC: M PLALAB 10:14
PROVIDERS: ATTEND Student in an Organized Health Care Education/Training Program
DX: R74.01 Elevation of levels of liver transaminase levels (principal)

== ENCOUNTER → 2023-06-21 | Outpatient (CLI) | payer OTHER | LOC: M PLAIMG 07:53 | PROVIDERS: ATTEND Student in an Organized Health Care Education/Training Program | DX: R10.0 Acute abdomen (principal); Z97.5 Presence of (intrauterine) contraceptive device ==

== ENCOUNTER → 2023-06-28 | Outpatient (REF) | payer OTHER, MEDICAID | LOC: M SFHCWAGY 15:09 | PROVIDERS: ATTEND Obstetrics & Gynecology | DX: Z12.4 Encounter for screening for malignant neoplasm of cervix (principal); R87.615 Unsatisfactory cytologic smear of cervix ==

== ENCOUNTER → 2023-06-30 | Outpatient (CLI) | payer OTHER | LOC: M WHC 07:32 | PROVIDERS: ATTEND Student in an Organized Health Care Education/Training Program | DX: N92.1 Excessive and frequent menstruation with irregular cycle (principal); Z97.5 Presence of (intrauterine) contraceptive device ==

== ENCOUNTER → 2023-12-06 | Outpatient (REF) | payer OTHER, MEDICAID ==
[2023-12-06 14:59] LABS: Trichomonas vaginalis (AMP) NOT DETECTED (NEGATIVE)
[2023-12-06 15:22] LABS: GC DNA AMPLIFICATION NEGATIVE (NEGATIVE)
[2023-12-08 13:26] LABS: HPV APTIMA Not Detected (Not Detected)
== END ==
LOC: M SFHCWAGY 12:30
PROVIDERS: ATTEND Obstetrics & Gynecology
DX: Z12.4 Encounter for screening for malignant neoplasm of cervix (principal)

== ENCOUNTER 2023-12-20 09:00 | Emergency (ER) | payer OTHER ==
[~2023-12-20] VITALS: Ht 157.5 cm; Wt 74.5 kg
[2023-12-20] MEDS: methocarbamoL 500 MG TAB PO ONE (12:40)
[2023-12-20] MEDS: KETOROLAC 60MG 2ML VIAL IM ONE (12:41)
[2023-12-20] MEDS ORDERED: METH-1164 PO (13:18)
[2023-12-20 13:31] VITALS: BP 123/72; TEMP 98.6; O2SAT 98
== END 2023-12-20 13:37 | disposition home or self-care (01) ==
LOC: M ED 09:00
DX: M62.830 Muscle spasm of back (principal); V43.52XA Car driver injured in collision with other type car in traffic accident, initial encounter; M41.9 Scoliosis, unspecified; J45.909 Unspecified asthma, uncomplicated; Z79.899 Other long term (current) drug therapy; Z88.0 Allergy status to penicillin; Z88.1 Allergy status to other antibiotic agents; Z88.5 Allergy status to narcotic agent; Z88.2 Allergy status to sulfonamides
CPT/HCPCS: 96372; 99283; J1885

== ENCOUNTER → 2024-12-23 | Outpatient (REF) | payer MEDICAID, OTHER ==
[~2024-12-23] MED LIST changes: -ADV250INH; +ADVA1AER9; +METH-1164 PO
== END ==
LOC: M SFHCWAGY 10:45
PROVIDERS: ATTEND Obstetrics & Gynecology
DX: Z12.4 Encounter for screening for malignant neoplasm of cervix (principal)